=== PATIENT | male | born 1935 | race Caucasian/White ===

== ENCOUNTER → 2018-12-06 | Outpatient (CLI) | payer MEDICARE, BC ==
[~2018-12-06] MED LIST: ACYCLOVIR400 MG PO; ALDACTONE 25MG25 MG PO; ALLEGRA 180MG180 MG PO; ALLOPURINOL300 MG PO; ASPIRIN E.C. 8181 MG PO; CEPHALEXIN500 M1 PO; COREG12.5 MG PO; COREG25 MG PO; DECADRON4 MG PO; DIOVAN 80MG80 MG PO; FOLIC ACID0.8 MG PO; LOW DOSE ASPIRI81 MG PO; METFORMIN500 MG PO; NATURAL E400 IU PO; NIACOR500 MG PO; NITROSTAT0.4 MG/TAB SL; OMEGA-31000 MG PO; PROCHLORPERAZIN10 MG PO; RITUXAN 10100 MG/10 IV; SIMCOR 500 MG-21 TER PO; TREANDA25 MG IV; VITAMIN C500 MG PO; ZOCOR 40MG40 MG PO
== END ==
LOC: COL.VAS 12:30
DX: Z13.6 Encounter for screening for cardiovascular disorders (principal); M79.89 Other specified soft tissue disorders

== ENCOUNTER 2018-12-19 09:28 | Emergency (ER) | payer MEDICARE, BC ==
[~2018-12-19] VITALS: Ht 182.9 cm; Wt 90.0 kg
[2018-12-19 09:33] VITALS: TEMP 97.5
[2018-12-19 10:29] LABS: ALBUMIN 3.2 gm/dL (3.5-5.0); BILIRUBIN,TOTAL 1.1 mg/dL (0.0-1.0); C-REACTIVE PROTEIN 4.6 mg/dL (0.0-0.9); CALCIUM 8.3 mg/dL (8.4-10.2); CREATININE, serum 0.97 mg/dL (0.66-1.25); POTASSIUM 4.9 mmol/L (3.4-5.0); TOTAL PROTEIN 5.4 gm/dL (6.4-8.2)
[2018-12-19 10:37] LABS: BASO % 0.8 % (0.0-2.0); EOS % 0.8 % (0-4.0); GRAN % 75.1 % (42.2-75.2); HEMATOCRIT 38.1 % (42.0-52.0); HEMOGLOBIN 12.6 g/dl (13.5-18.0); LYMPH # 0.3 (1.2-3.4); LYMPH % 12.6 % (20.0-51.0); MEAN CELL VOLUME 97 fl (80.0-100.0); MEAN CORPUSCULAR HEMOGLOBIN 32 pg (27.0-31.0); MEAN CORPUSCULAR HGB CONC 33 g/dl (33.0-37.0); MEAN PLATELET VOLUME 11.3 fl (7.4-10.4); MONO # 0.3 (0.1-0.6); MONO % 10.3 % (1.7-9.3); PLATELET COUNT 68 K/mm3 (130-400); RED BLOOD COUNT 3.95 M/mm3 (4.20-5.60); REDCELL DISTRIBUTION WIDTH-CV 15.1 % (11.5-14.5)
[2018-12-19 11:11] LABS: COLLECTION METHOD CLEAN CATCH
[2018-12-19 11:28] LABS: MUCOUS Present /lpf; PH 5 (5-8); SQUAMOUS EPITHELIAL None Seen /hpf; URINE APPEARANCE Clear; URINE BACTERIA None Seen /hpf; URINE BILIRUBIN Negative (NEGATIVE); URINE BLOOD Negative (NEGATIVE); URINE COLOR Amber; URINE GLUCOSE Negative (NEGATIVE); URINE KETONE Negative (NEGATIVE); URINE LEUKOCYTE ESTERASE Negative (NEGATIVE); URINE NITRATE Negative (NEGATIVE); URINE PROTEIN(semi-quant) Negative (NEGATIVE); URINE RBC 0-2 /hpf
[2018-12-19 13:09] VITALS: BP 96/57; PULSE 90
[2018-12-22] MEDS ORDERED: ZOFRAN8 MG PO (12:02)
[2018-12-22] MEDS ORDERED: K-DUR20 MEQ PO (12:02)
[2018-12-22] MEDS ORDERED: COMPAZINE 110 MG/TAB PO (12:03)
[2018-12-22] MEDS ORDERED: ZOVIRAX400 MG PO (12:04)
[2018-12-22] MEDS ORDERED: ZYLOPRIM 300MG300 MG PO (12:05)
[2018-12-22] MEDS ORDERED: BACTRIM DS 8001 TAB PO (12:05)
== END 2018-12-19 13:09 | disposition home or self-care (01) ==
LOC: COL.ER 09:28
PROVIDERS: Family Medicine
DX: J90 Pleural effusion, not elsewhere classified (principal); R18.8 Other ascites; E11.9 Type 2 diabetes mellitus without complications; C95.90 Leukemia, unspecified not having achieved remission; Z79.84 Long term (current) use of oral hypoglycemic drugs
CPT/HCPCS: J2405; J7030; Q9967

== ENCOUNTER → 2018-12-22 | Outpatient (CLI) | payer MEDICARE, BC ==
[~2018-12-22] VITALS: Ht 182.9 cm; Wt 93.2 kg
[~2018-12-22] MED LIST changes: +BACTRIM DS 8001 TAB PO; +COMPAZINE 110 MG/TAB PO; +K-DUR20 MEQ PO; +ZOFRAN8 MG PO; +ZOVIRAX400 MG PO; +ZYLOPRIM 300MG300 MG PO
[2018-12-22 12:08] VITALS: BP 103/64; PULSE 92
[2018-12-22 13:22] VITALS: BP 109/67; PULSE 95
--- NOTE | 2018-12-22 13:45 | NUR ---
pt taken to pov in wheelchair
[2018-12-22 13:50] LABS: PERITONEAL -POLYMORPHONUCLEAR 36.3 % (0-25); PERITONEAL FLUID RBC 2000 /mm3 (0-0)
== END ==
LOC: COL.RAD 11:45
PROVIDERS: Internal Medicine
DX: C91.12 Chronic lymphocytic leukemia of B-cell type in relapse (principal); R18.8 Other ascites

== ENCOUNTER → 2019-01-06 | Outpatient (CLI) | payer MEDICARE, BC ==
[~2019-01-06] VITALS: Ht 182.9 cm; Wt 92.7 kg
[2019-01-06] VITALS (14 sets, daily range): BP systolic 93–121; BP diastolic 51–65; PULSE 77–88
[~2019-01-06] MED LIST changes: +ALDACTONE 25MG25 M1 PO; -ALDACTONE 25MG25 MG PO; +GLUCOPHAGE500 MG/TAB PO; -METFORMIN500 MG PO
[2019-01-06 14:01] LABS: ALBUMIN 2.8 gm/dL (3.5-5.0); CREATININE, serum 0.95 mg/dL (0.66-1.25); POTASSIUM 4.9 mmol/L (3.4-5.0); TOTAL PROTEIN 4.6 gm/dL (6.4-8.2)
--- NOTE | 2019-01-06 14:50 | NUR ---
pt to ct per wheelchair. Pt positioned on ct table in supine position. Monitors applied.
--- NOTE | 2019-01-06 15:00 | NUR ---
Dr Vyas into talk with pt.
--- NOTE | 2019-01-06 15:10 | NUR ---
Specimen obtained by Dr Vyas and placed in formalin. Specimen labeled.
--- NOTE | 2019-01-06 17:20 | NUR ---
pt out to car per wheelchair. Pt up with assistance and into car. Denies pain at this time.
== END ==
LOC: COL.RAD 11:24
PROVIDERS: Physician Assistant
DX: I51.9 Heart disease, unspecified (principal); R18.8 Other ascites; R53.83 Other fatigue

== ENCOUNTER → 2019-01-25 | Outpatient (CLI) | payer MEDICARE, BC ==
[~2019-01-25] VITALS: Ht 182.9 cm; Wt 90.4 kg
[2019-01-25 12:36] VITALS: BP 116/60; PULSE 82
[2019-01-25 13:30] VITALS: BP 105/58; PULSE 82
== END ==
LOC: COL.RAD 12:22
DX: C91.90 Lymphoid leukemia, unspecified not having achieved remission (principal); I50.9 Heart failure, unspecified; R18.8 Other ascites

== ENCOUNTER → 2019-02-08 | Outpatient (CLI) | payer MEDICARE, BC ==
[~2019-02-08] VITALS: Ht 182.9 cm; Wt 91.5 kg
[~2019-02-08] MED LIST changes: +OMEGA-3 FISH1000 MG PO; -OMEGA-31000 MG PO
[2019-02-08 12:03] VITALS: BP 105/64; PULSE 85
[2019-02-08 13:19] LABS: PERITONEAL -POLYMORPHONUCLEAR 5.9 % (0-25); PERITONEAL FLUID RBC 12000 /mm3 (0-0)
[2019-02-08 13:21] VITALS: BP 96/66; PULSE 80
--- NOTE | 2019-02-08 13:22 | NUR ---
PT TAKEN TO POV IN WHEELCHAIR. PT GAIT IS OCCASSIONALLY UNSTEADY. STAYED WITH PT FROM WHEELCHAIR TO POV.
[2019-02-08 17:47] LABS: TRIGLYCERIDE-BODY FLUID 37 mg/dL
== END ==
LOC: COL.RAD 11:45
PROVIDERS: Family Medicine
DX: C91.90 Lymphoid leukemia, unspecified not having achieved remission (principal); I50.9 Heart failure, unspecified; R18.8 Other ascites
CPT/HCPCS: 19804

== ENCOUNTER → 2019-02-22 | Outpatient (CLI) | payer MEDICARE, BC ==
[~2019-02-22] VITALS: Ht 182.9 cm; Wt 92.6 kg
[2019-02-22 09:17] VITALS: BP 111/72; PULSE 85
[2019-02-22 09:55] LABS: HEMATOCRIT 38.6 % (42.0-52.0); HEMOGLOBIN 12.7 g/dl (13.5-18.0); MEAN CELL VOLUME 95 fl (80.0-100.0); MEAN CORPUSCULAR HEMOGLOBIN 31 pg (27.0-31.0); MEAN CORPUSCULAR HGB CONC 33 g/dl (33.0-37.0); MEAN PLATELET VOLUME 10.7 fl (7.4-10.4); PLATELET COUNT 59 K/mm3 (130-400); RED BLOOD COUNT 4.07 M/mm3 (4.20-5.60); REDCELL DISTRIBUTION WIDTH-CV 15.2 % (11.5-14.5)
[2019-02-22 10:10] VITALS: BP 106/63; PULSE 90
[2019-02-22 10:14] LABS: ALBUMIN 2.9 gm/dL (3.5-5.0); BILIRUBIN,TOTAL 1.2 mg/dL (0.0-1.0); CALCIUM 7.9 mg/dL (8.4-10.2); CREATININE, serum 1.04 (0.66-1.25); POTASSIUM 4.9 mmol/L (3.4-5.0); TOTAL PROTEIN 4.8 gm/dL (6.4-8.2)
--- NOTE | 2019-02-22 10:25 | NUR ---
pt out to car per wheelchair with family. Pt denies pain at this time. Resp even and easy. Discharge instructions gone over with pt. Pt denies need for copy of instructions.
== END ==
LOC: COL.RAD 08:52
PROVIDERS: Family Medicine
DX: I50.9 Heart failure, unspecified (principal); R18.8 Other ascites

== ENCOUNTER → 2019-03-09 | Outpatient (CLI) | payer MEDICARE, BC ==
[~2019-03-09] VITALS: Ht 182.9 cm; Wt 97.6 kg
[2019-03-09 09:47] VITALS: BP 109/65; PULSE 77
[2019-03-09 10:30] VITALS: BP 119/55; PULSE 77
== END ==
LOC: COL.RAD 09:21
DX: R18.8 Other ascites (principal)

== ENCOUNTER 2019-03-16 09:15 | Outpatient (CLI) | payer MEDICARE, BC ==
[~2019-03-16] VITALS: Ht 182.9 cm; Wt 95.0 kg
[~2019-03-16 09:15] MED LIST changes: +COREG 6.256.25 MG/TA PO; -COREG12.5 MG PO
[2019-03-16 09:56] LABS: HEMOGLOBIN 13.2 g/dl (13.5-18.0); MEAN CELL VOLUME 95 fl (80.0-100.0); MEAN CORPUSCULAR HEMOGLOBIN 30 pg (27.0-31.0); MEAN CORPUSCULAR HGB CONC 32 g/dl (33.0-37.0); MEAN PLATELET VOLUME 10.1 fl (7.4-10.4); PLATELET COUNT 71 K/mm3 (130-400); RED BLOOD COUNT 4.34 M/mm3 (4.20-5.60); REDCELL DISTRIBUTION WIDTH-CV 14.7 % (11.5-14.5)
[2019-03-16 10:04] VITALS: BP 108/70; PULSE 85; TEMP 97.8
[2019-03-16 10:06] LABS: CALCIUM 8.1 mg/dL (8.4-10.2); CREATININE, serum 1.08 (0.66-1.25); POTASSIUM 4.9 mmol/L (3.4-5.0)
[2019-03-16 10:08] LABS: INR 1.1 (0.8-3.0); PROTHROMBIN TIME 12.1 SECONDS (9.7-12.8)
[2019-03-16 12:00] VITALS: BP 110/65; PULSE 78
--- NOTE | 2019-03-16 12:02 | NUR ---
Report received from [employer] [facility].
[2019-03-16 12:15] VITALS: BP 101/66; PULSE 77
[2019-03-16 12:30] VITALS: BP 107/66; PULSE 78
[2019-03-16 12:45] VITALS: BP 104/66; PULSE 78
--- NOTE | 2019-03-16 13:08 | NUR ---
Discharge instructions given to pt.Pt verbalizes understanding.INT removed,catheter tip intact.pt escorted out via wheelchair by this nurse.
== END 2019-03-16 13:09 | disposition home or self-care (01) ==
LOC: COL.RAD 09:15
PROVIDERS: Internal Medicine Cardiovascular Disease
DX: I34.0 Nonrheumatic mitral (valve) insufficiency (principal); Z95.1 Presence of aortocoronary bypass graft
CPT/HCPCS: J2704; J7030

== ENCOUNTER → 2019-03-24 | Outpatient (CLI) | payer MEDICARE, BC ==
[~2019-03-24] VITALS: Ht 182.9 cm; Wt 97.4 kg
[2019-03-24 12:00] VITALS: BP 109/73; PULSE 88
[2019-03-24 14:08] VITALS: BP 107/65; PULSE 88
--- NOTE | 2019-03-24 14:23 | NUR ---
PT TAKEN TO POV IN WHEELCHAIR, DRIVING HOME
== END ==
LOC: COL.RAD 11:39
DX: R18.8 Other ascites (principal)

== ENCOUNTER → 2019-04-08 | Outpatient (CLI) | payer MEDICARE, BC ==
[~2019-04-08] VITALS: Ht 182.9 cm; Wt 90.0 kg
[2019-04-08 09:58] VITALS: BP 99/42; PULSE 83
[2019-04-08 11:30] VITALS: BP 104/72; PULSE 87
== END ==
LOC: COL.RAD 09:42
DX: R18.8 Other ascites (principal)

== ENCOUNTER → 2019-04-20 | Outpatient (CLI) | payer MEDICARE, BC ==
[~2019-04-20] VITALS: Ht 182.9 cm; Wt 88.6 kg
[2019-04-20 08:59] VITALS: BP 103/65; PULSE 76
--- NOTE | 2019-04-20 09:03 | NUR ---
PT TAKEN TO ULTRASOUND ROOM
[2019-04-20 10:03] VITALS: BP 104/58; PULSE 75
--- NOTE | 2019-04-20 10:12 | NUR ---
PT LEAVES AMBULATORY TO POV WITH
== END ==
LOC: COL.RAD 08:48
DX: R18.8 Other ascites (principal)

== ENCOUNTER → 2019-05-04 | Outpatient (CLI) | payer MEDICARE, BC ==
[~2019-05-04] VITALS: Ht 182.9 cm; Wt 85.3 kg
[2019-05-04 09:35] VITALS: BP 101/60; PULSE 78
[2019-05-04 10:30] VITALS: BP 98/57; PULSE 80
--- NOTE | 2019-05-04 10:44 | NUR ---
PT LEAVES AMBULATORY WITH
== END ==
LOC: COL.RAD 08:57
DX: R18.8 Other ascites (principal); I50.42 Chronic combined systolic (congestive) and diastolic (congestive) heart failure; Z68.29 Body mass index [BMI] 29.0-29.9, adult

== ENCOUNTER 2019-05-16 09:48 | Day surgery (SDC) | payer MEDICARE, BC ==
[2019-05-16] VITALS (11 sets, daily range): BP systolic 82–108; BP diastolic 52–65; PULSE 72–86; TEMP 97.5
[~2019-05-16] VITALS: Ht 183 cm; Wt 87.5 kg
[2019-05-16 10:41] LABS: CALCIUM 8.1 mg/dL (8.4-10.2)
[2019-05-16 10:44] LABS: HEMATOCRIT 39.9 % (42.0-52.0); HEMOGLOBIN 12.7 g/dl (13.5-18.0); MEAN CELL VOLUME 90 fl (80.0-100.0); MEAN CORPUSCULAR HEMOGLOBIN 29 pg (27.0-31.0); MEAN CORPUSCULAR HGB CONC 32 g/dl (33.0-37.0); PLATELET COUNT 85 K/mm3 (130-400); RED BLOOD COUNT 4.42 M/mm3 (4.20-5.60); REDCELL DISTRIBUTION WIDTH-CV 15.3 % (11.5-14.5)
[2019-05-16 10:52] LABS: INR 1.1 (0.8-3.0); PROTHROMBIN TIME 12.5 SECONDS (9.7-12.8)
--- NOTE | 2019-05-16 12:19 | NUR ---
SEE MERGE DOCUMENTATION FOR MEDICATION ADMINISTRATION TIMES AND INTRA/POST PROCEDURE SEDATION ASSESSMENTS. MD NOTIFIED OF PLT COUNT PRIOR TO PROCEDURE.
--- NOTE | 2019-05-16 13:21 | NUR ---
Back from geotechnical laboratory technician by bed. Alert and oriented, spouse bedside. Right groin drsg CD&I, site soft to palpation and good pedal pulses noted. VSS
--- NOTE | 2019-05-16 17:18 | NUR ---
Discontinued IV intact. VSS. Right groin site CD&I and soft to palpation.
--- NOTE | 2019-05-16 17:19 | NUR ---
Ambulated to bathroom with steday gait. Discharge instructions given
--- NOTE | 2019-05-16 17:29 | NUR ---
Transferred to private car by greg
== END 2019-05-16 17:29 | disposition home or self-care (01) ==
LOC: COL.CAR 09:48
PROVIDERS: Internal Medicine Cardiovascular Disease
DX: I25.10 Atherosclerotic heart disease of native coronary artery without angina pectoris (principal); I42.9 Cardiomyopathy, unspecified; I34.9 Nonrheumatic mitral valve disorder, unspecified; Z95.1 Presence of aortocoronary bypass graft; R94.39 Abnormal result of other cardiovascular function study
CPT/HCPCS: J1644; J3010; Q9967

== ENCOUNTER → 2019-05-18 | Outpatient (CLI) | payer MEDICARE, BC ==
[~2019-05-18] VITALS: Ht 182.9 cm; Wt 86.5 kg
[2019-05-18 09:05] VITALS: BP 102/72; PULSE 93
[2019-05-18 10:40] VITALS: BP 104/70; PULSE 83
== END ==
LOC: COL.RAD 08:50
DX: R18.8 Other ascites (principal)

== ENCOUNTER → 2019-06-01 | Outpatient (CLI) | payer MEDICARE, BC ==
[~2019-06-01] VITALS: Ht 182.9 cm; Wt 86.4 kg
[~2019-06-01] MED LIST changes: +LASIX 20MG TABL20 MG PO
[2019-06-01 09:05] VITALS: BP 105/67; PULSE 78
[2019-06-01 10:06] VITALS: PULSE 78
== END ==
LOC: COL.RAD 08:49
DX: R18.8 Other ascites (principal)

== ENCOUNTER → 2019-06-17 | Outpatient (CLI) | payer MEDICARE, BC ==
[~2019-06-17] VITALS: Ht 182.9 cm; Wt 85.2 kg
[2019-06-17 09:18] VITALS: BP 101/56; PULSE 80
[2019-06-17 10:02] VITALS: BP 113/67; PULSE 76
--- NOTE | 2019-06-17 10:10 | NUR ---
LEAVES IN WHEELCHAIR WITH HIS
== END ==
LOC: COL.RAD 06-15 09:00
DX: R18.8 Other ascites (principal)

== ENCOUNTER → 2019-07-06 | Outpatient (CLI) | payer MEDICARE, BC ==
[~2019-07-06] VITALS: Ht 182.9 cm; Wt 83.5 kg
[2019-07-06 08:18] VITALS: BP 113/69; PULSE 81
[2019-07-06 09:20] VITALS: BP 101/69; PULSE 82
--- NOTE | 2019-07-06 09:35 | NUR ---
pt has small amount of bloody drainage on bandaid. Replaced bandaid with folded 2x2 and bandaid. Will monitor pt for an additional 15 minutes.
--- NOTE | 2019-07-06 09:45 | NUR ---
Dr Carmen looks at site. Informed of reinforced dressing. No clear drainage noted only slight bloody drainage.
--- NOTE | 2019-07-06 09:50 | NUR ---
No new drainage noted on outside of bandaid. Martir wrap applied around stomach for added pressure to site. Pt out to car per ambulation accompanied by .
== END ==
LOC: COL.RAD 08:08
DX: R18.8 Other ascites (principal)

== ENCOUNTER → 2019-09-09 | Outpatient (CLI) | payer MEDICARE, BC ==
[~2019-09-09] VITALS: Ht 182.9 cm; Wt 84.0 kg
[2019-09-09 12:36] VITALS: BP 116/67; PULSE 80
[2019-09-09 13:24] VITALS: BP 107/67; PULSE 92
--- NOTE | 2019-09-09 13:48 | NUR ---
PT LEAVES AMBULATORY WITH SPOUSE
== END ==
LOC: COL.RAD 12:00
DX: R18.8 Other ascites (principal)

== ENCOUNTER → 2019-09-20 | Outpatient (CLI) | payer MEDICARE, BC ==
[~2019-09-20] VITALS: Ht 182.9 cm; Wt 83.1 kg
[2019-09-20 13:30] VITALS: BP 95/65; PULSE 73
[2019-09-20 14:45] VITALS: BP 103/62; PULSE 83
== END ==
LOC: COL.RAD 13:13
DX: R18.8 Other ascites (principal)

== ENCOUNTER 2019-10-01 09:36 | Emergency (ER) | payer MEDICARE, BC ==
[~2019-10-01] VITALS: Ht 182.9 cm; Wt 84.1 kg
[2019-10-01 09:39] VITALS: TEMP 97.6
[2019-10-01] MEDS ORDERED: LIPITOR 40MG TA40 MG PO (09:57)
[2019-10-01] MEDS ORDERED: NIACIN 64 MG-501 TA1 PO (09:58)
[2019-10-01] MEDS ORDERED: CEPHALEXIN500 M1 PO (10:35)
[2019-10-01 10:43] VITALS: BP 117/73; PULSE 68
== END 2019-10-01 10:55 | disposition home or self-care (01) ==
LOC: COL.ER 09:36
DX: R04.0 Epistaxis (principal); I25.10 Atherosclerotic heart disease of native coronary artery without angina pectoris; Z79.82 Long term (current) use of aspirin

== ENCOUNTER 2019-10-05 09:57 | Day surgery (SDC) | payer MEDICARE, BC ==
[~2019-10-05] VITALS: Ht 182.9 cm; Wt 82.9 kg
[2019-10-05] VITALS (8 sets, daily range): BP systolic 100–110; BP diastolic 56–70; PULSE 72–81; TEMP 97.5–98.6
[~2019-10-05 09:57] MED LIST changes: +LIPITOR 40MG TA40 MG PO; +NIACIN 64 MG-501 TA1 PO
[2019-10-05] MEDS ORDERED: PLAVIX 75MG TAB75 MG PO (10:31)
--- NOTE | 2019-10-05 15:25 | NUR ---
Pt arrived from PACU via cart with ENGINE REPAIRER SERVICE. Received report from MCKENZIE Mayer. Pt was in OR longer than expected (2 hrs for 30 min procedure), and per report, had some difficulty with stopping bleeding. [place] [facility] [place] saturating through 4x4, and ENGINE REPAIRER SERVICE changed pt's dressing immediately upon arrival. Pt's VSS and WNL, and patient denies pain, nausea, or lightheadedness. Pt is sitting up in bed alert and oriented and appropriate. at bedside, and this RN reviewed some initial instructions with patient and . Call light within reach.
--- NOTE | 2019-10-05 15:41 | NUR ---
Brought pt apple juice per request. Pt already showing more drainage on dressing. Pt sitting comfortably in bed chatting with . VSS and WNL, call light within reach. Pt denies nausea or pain at this time.
--- NOTE | 2019-10-05 15:45 | NUR ---
Pt has sanguinous drainage on dressing through 4x4. Removed dressing and gave Afrin spray per orders and reapplied dressing (4x4 and paper tape). Pt successfully finished apple juice and requested applesauce and pudding.
--- NOTE | 2019-10-05 16:00 | NUR ---
Sanguinous drainage on dressing. Dressing changed with 4x4 and paper tape. VSS and WNL. Pt finished applesauce and pudding without c/o nausea. at bedside.
--- NOTE | 2019-10-05 16:15 | NUR ---
Pt sitting comfortably in bed. Dressing changed due to sanguinous exudate. Asked patient and if they feel comfortable going home with the frequency of dressing changes, and they both agree that they feel comfortable with that plan. Brought in 4x4s and paper tape to bring home. Pt denies pain or nausea.
--- NOTE | 2019-10-05 16:30 | NUR ---
Pt ambulated to bathroom with touch assist, however was unable to void at this time. Call light within reach, at bedside.
--- NOTE | 2019-10-05 17:00 | NUR ---
Pt successfully up to void. Reviewed discharge information including educational packet. Described to pt when/how to call the dr in case of concerns/questions. Also showed pt and how to administer Afrin spray and how to change dressing. They both expressed understanding and did not have further concerns or questions at this time. Dressing changed once more before pt discharge. Pt transferred via WC with RN to private car.
== END 2019-10-05 17:15 | disposition home or self-care (01) ==
LOC: SDCO 09:57
DX: R04.0 Epistaxis (principal); Z79.02 Long term (current) use of antithrombotics/antiplatelets; Z79.82 Long term (current) use of aspirin; I11.0 Hypertensive heart disease with heart failure; I50.9 Heart failure, unspecified; I34.1 Nonrheumatic mitral (valve) prolapse; I25.10 Atherosclerotic heart disease of native coronary artery without angina pectoris; E11.9 Type 2 diabetes mellitus without complications; Z85.6 Personal history of leukemia; I25.2 Old myocardial infarction; Z87.891 Personal history of nicotine dependence; C08.9 Malignant neoplasm of major salivary gland, unspecified; Z85.828 Personal history of other malignant neoplasm of skin; D48.5 Neoplasm of uncertain behavior of skin; L57.0 Actinic keratosis; Z82.49 Family history of ischemic heart disease and other diseases of the circulatory system; Z80.9 Family history of malignant neoplasm, unspecified; Z79.899 Other long term (current) drug therapy; Z95.0 Presence of cardiac pacemaker; Z98.62 Peripheral vascular angioplasty status; Z85.818 Personal history of malignant neoplasm of other sites of lip, oral cavity, and pharynx
CPT/HCPCS: J1100; J2405; J2704; J3010; J7120

== ENCOUNTER 2019-10-24 15:44 | Outpatient (RCR) | payer MEDICARE, BC ==
[~2019-10-24 15:44] MED LIST changes: +PLAVIX 75MG TAB75 MG PO
== END 2019-10-30 | disposition home or self-care (01) ==
LOC: COL.CR
DX: Z48.812 Encounter for surgical aftercare following surgery on the circulatory system (principal); I34.0 Nonrheumatic mitral (valve) insufficiency

== ENCOUNTER 2019-11-25 13:32 | Outpatient (RCR) | payer MEDICARE, BC ==
[2019-12-14] MEDS ORDERED: MUCINEX 60600 MG/TA1 (12:57)
== END 2019-12-26 06:57 | disposition home or self-care (01) ==
LOC: COL.CR 13:32
DX: Z48.812 Encounter for surgical aftercare following surgery on the circulatory system (principal); I34.0 Nonrheumatic mitral (valve) insufficiency

== ENCOUNTER 2019-11-30 20:47 | Emergency (ER) | payer MEDICARE, BC ==
[~2019-11-30] VITALS: Ht 182.9 cm; Wt 80.5 kg
[2019-11-30 21:16] LABS: ARTERIAL BLD GAS O2 SATURATION 93.2 % (92-100); ARTERIAL BLD GAS TCO2 CT 21.3; ARTERIAL BLOOD GAS BASE EXCESS -2.6 (-2-2); ARTERIAL BLOOD GAS HCO3 20.4 meq/L (22-26); ARTERIAL BLOOD GAS PCO2 29.6 mmHg (35-45); ARTERIAL BLOOD GAS pH 7.46 (7.35-7.45)
[2019-11-30 21:48] LABS: BASO % 0.4 % (0.0-2.0); GRAN # 1.8 (1.4-6.5); GRAN % 65.2 % (42.2-75.2); HEMOGLOBIN 10.7 g/dl (13.5-18.0); LYMPH # 0.7 (1.2-3.4); MEAN CELL VOLUME 87 fl (80.0-100.0); MEAN CORPUSCULAR HEMOGLOBIN 27 pg (27.0-31.0); MEAN CORPUSCULAR HGB CONC 32 g/dl (33.0-37.0); MEAN PLATELET VOLUME 11.7 fl (7.4-10.4); MONO # 0.2 (0.1-0.6); MONO % 8.3 % (1.7-9.3); PLATELET COUNT 78 K/mm3 (130-400); RED BLOOD COUNT 3.92 M/mm3 (4.20-5.60); REDCELL DISTRIBUTION WIDTH-CV 15.6 % (11.5-14.5)
[2019-11-30 21:49] LABS: HEMATOCRIT 33.9 % (42.0-52.0)
[2019-11-30 22:03] LABS: ALBUMIN 3.4 gm/dL (3.5-5.0); CALCIUM 8.1 mg/dL (8.4-10.2); CREATININE, serum 0.99 (0.66-1.25); POTASSIUM 4.2 mmol/L (3.4-5.0); TOTAL PROTEIN 5.4 gm/dL (6.4-8.2)
[2019-11-30 22:44] LABS: COLLECTION METHOD CLEAN CATCH
[2019-11-30 22:53] LABS: MUCOUS Present /lpf; PH 5 (5-8); SQUAMOUS EPITHELIAL None Seen /hpf; URINE APPEARANCE Clear; URINE BACTERIA None Seen /hpf; URINE BILIRUBIN Negative (NEGATIVE); URINE BLOOD Negative (NEGATIVE); URINE COLOR Yellow; URINE GLUCOSE Negative (NEGATIVE); URINE KETONE 1+ (NEGATIVE); URINE LEUKOCYTE ESTERASE Negative (NEGATIVE); URINE NITRATE Negative (NEGATIVE); URINE PROTEIN(semi-quant) Negative (NEGATIVE); URINE RBC 0-2 /hpf; URINE UROBILINOGEN Negative (NEGATIVE)
[2019-12-01 07:30] VITALS: BP 93/62; PULSE 91; TEMP 98.9
== END 2019-12-01 07:33 | disposition short-term general hospital (02) ==
LOC: COL.ER 20:47
PROVIDERS: Family Medicine
DX: J18.1 Lobar pneumonia, unspecified organism (principal); I25.10 Atherosclerotic heart disease of native coronary artery without angina pectoris; Z95.1 Presence of aortocoronary bypass graft; Z95.0 Presence of cardiac pacemaker; Z95.5 Presence of coronary angioplasty implant and graft; Z79.02 Long term (current) use of antithrombotics/antiplatelets; Z79.82 Long term (current) use of aspirin
CPT/HCPCS: J0456; J0696; J7030; J7050

== ENCOUNTER → 2019-12-14 | Outpatient (CLI) | payer MEDICARE, BC ==
[~2019-12-14] VITALS: Ht 182.9 cm; Wt 83.9 kg
[~2019-12-14] MED LIST changes: +MUCINEX 60600 MG/TA1
[2019-12-14 12:58] VITALS: BP 110/69; PULSE 76
[2019-12-14 13:49] VITALS: BP 110/70; PULSE 80
--- NOTE | 2019-12-14 14:05 | NUR ---
PT TAKEN DOWN TO LOBBY IN WHEELCHAIR. PRESENT
== END ==
LOC: COL.RAD 12-13 11:45
DX: R18.8 Other ascites (principal)

== ENCOUNTER 2020-01-18 11:03 | Outpatient (RCR) | payer SELFPAY | END 2020-03-27 | disposition still patient (30) | LOC: COL.CR | DX: Z02.89 Encounter for other administrative examinations (principal) ==

== ENCOUNTER 2020-11-16 20:06 | Inpatient (IN) | payer MEDICARE, BC ==
[~2020-11-16] VITALS: Ht 203.2 cm; Wt 80.0 kg
[2020-11-16 21:48] LABS: HEMOGLOBIN 13.4 g/dl (13.5-18.0); MEAN CELL VOLUME 86 fl (80.0-100.0); MEAN CORPUSCULAR HEMOGLOBIN 26 pg (27.0-31.0); MEAN CORPUSCULAR HGB CONC 31 g/dl (33.0-37.0); MEAN PLATELET VOLUME 10.1 fl (7.4-10.4); PLATELET COUNT 156 K/mm3 (130-400); RED BLOOD COUNT 5.11 M/mm3 (4.20-5.60); REDCELL DISTRIBUTION WIDTH-CV 20.4 % (11.5-14.5)
[2020-11-16 21:54] LABS: ALANINE AMINOTRANSFERASE 18 U/L (4-49); ALBUMIN 3.7 gm/dL (3.5-5.0); ALKALINE PHOSPHATASE 101 U/L (50-136); ANION GAP 8 mmol/L (7-16); AST,SGOT 41 U/L (15-37); BILIRUBIN,TOTAL 1.1 mg/dL (0.0-1.0); BLOOD UREA NITROGEN 13 mg/dL (9-20); CALCIUM 8.4 mg/dL (8.4-10.2); CARBON DIOXIDE 25 mmol/L (22-30); CHLORIDE 99 mmol/L (98-107); CREATININE, serum 0.97 (0.66-1.25); GLUCOSE 114 mg/dL (74-106); POTASSIUM 4.9 mmol/L (3.4-5.0); SODIUM 132 mmol/L (137-145); TOTAL PROTEIN 5.8 gm/dL (6.4-8.2)
[2020-11-16 22:06] LABS: TROPONIN-I < 0.012 ng/mL (0.000-0.035)
[2020-11-16 22:17] LABS: COLLECTION METHOD CLEAN CATCH
[2020-11-16 22:17] LABS: LYMPHOCYTE 64 % (20.0-51.0); NEUTROPHILS 29 % (42.0-75.2)
[2020-11-16 22:18] LABS: HYPOCHROMIA 3+; PLATELET ESTIMATE NORMAL (NORMAL)
[2020-11-16 22:19] LABS: ANISOCYTOSIS 2+; OVALOCYTES 1+
[2020-11-16 22:23] LABS: MUCOUS Present /lpf; PH 5 (5-8); SQUAMOUS EPITHELIAL 0-2 /hpf; URINE APPEARANCE Clear; URINE BACTERIA None Seen /hpf; URINE BILIRUBIN Negative (NEGATIVE); URINE BLOOD Negative (NEGATIVE); URINE COLOR Yellow; URINE GLUCOSE Negative (NEGATIVE); URINE KETONE Negative (NEGATIVE); URINE LEUKOCYTE ESTERASE Negative (NEGATIVE); URINE NITRATE Negative (NEGATIVE); URINE PROTEIN(semi-quant) Negative (NEGATIVE)
[2020-11-17] MEDS ORDERED: PLAVIX 75MG TAB75 MG PO (02:38)
[2020-11-17] MEDS ORDERED: COREG 3.123.125 MG/T PO (02:40)
--- NOTE | 2020-11-17 04:46 | NUR ---
Vancomycin Initial Dosing Pharmacy Note 85 yo M Indication: Empiric Goal: 15-20 Hx: None identified BMI: 23.8 Wt: 79.5 SCr: 0.97 estCrCl ~ 65 ml/min t 1/2 ~ 12h Tmax: 96.8 WBC: 17.9 LA 1.5 CRP pending Micro pending Pt loaded with 1.5 gm x1( ~19mg/kg). Will start a maintenance regimen of 1 gm q12h. Will follow renal function and micro for need to adjust therapy. Thank you for this dosing consult!
[2020-11-17 05:31] VITALS: BP 108/61; PULSE 103; TEMP 98
--- NOTE | 2020-11-17 05:57 | NUR ---
Pt was transferred to the unit via stretcher. Pt has no complaints at this time. Pt has call light within reach and his bed is in lowest position.
[2020-11-17 06:38] LABS: INR 1.3 (0.8-3.0); PROTHROMBIN TIME 14.2 SECONDS (9.7-12.8)
[2020-11-17 06:45] LABS: MAGNESIUM 2.2 mg/dL (1.6-2.3); PHOSPHOROUS 3.5 mg/dL (2.5-4.5)
[2020-11-17 06:52] LABS: C-REACTIVE PROTEIN < 0.5 mg/dL (0.0-0.9)
[2020-11-17 06:58] LABS: TROPONIN-I < 0.012 ng/mL (0.000-0.035)
--- NOTE | 2020-11-17 07:30 | NUR ---
Reported off to MCKENZIE Lema. Pt still has Vanco infusing at this time. Pt has ambulated to the restroom this morning with the aide as a standby assist. Pt is back in bed and has his call light within reach and his bed is in lowest position.
[2020-11-17 08:34] VITALS: BP 94/50; PULSE 79; TEMP 97.7
--- NOTE | 2020-11-17 09:04 | NUR ---
Left VM for Dr. Gillespie, oncology consult
[2020-11-17 09:10] LABS: PATHOLOGY DIFF REVIEW OK
--- NOTE | 2020-11-17 11:17 | NUR ---
Patient in bed resting. Alert and oriented x 3. Assessment complete. Denies pain at this time. BLE edema noted. Denies further needs at this time.
[2020-11-17 11:57] LABS: HEMATOCRIT 38.3 % (42.0-52.0); HEMOGLOBIN 11.8 g/dl (13.5-18.0); MEAN CELL VOLUME 88 fl (80.0-100.0); MEAN CORPUSCULAR HEMOGLOBIN 27 pg (27.0-31.0); MEAN CORPUSCULAR HGB CONC 31 g/dl (33.0-37.0); MEAN PLATELET VOLUME 10.8 fl (7.4-10.4); PLATELET COUNT 96 K/mm3 (130-400); RED BLOOD COUNT 4.37 M/mm3 (4.20-5.60); REDCELL DISTRIBUTION WIDTH-CV 19.9 % (11.5-14.5)
[2020-11-17 12:04] LABS: ALBUMIN 3.2 gm/dL (3.5-5.0); BILIRUBIN,TOTAL 1.1 mg/dL (0.0-1.0); CALCIUM 8.2 mg/dL (8.4-10.2); CREATININE, serum 0.85 (0.66-1.25); POTASSIUM 4.2 mmol/L (3.4-5.0); TOTAL PROTEIN 5.1 gm/dL (6.4-8.2)
[2020-11-17 12:31] VITALS: BP 108/70; PULSE 87; TEMP 97.9
[2020-11-17 12:31] LABS: BAND 6 % (0-10); EOSINOPHIL 2 % (0-4); LYMPHOCYTE 60 % (20.0-51.0); NEUTROPHILS 29 % (42.0-75.2)
[2020-11-17 12:32] LABS: HYPOCHROMIA 2+; PLATELET ESTIMATE DECREASED (NORMAL)
[2020-11-17 12:33] LABS: ANISOCYTOSIS 2+
--- NOTE | 2020-11-17 12:34 | NUR ---
First visit from the cryptologic supervisor. No needs right now.
--- NOTE | 2020-11-17 15:38 | NUR ---
Plan to return home with Dianna San at [phone]. Patient reports that he resides locally andhis Son Moustapha San at . Patient reports the use of [facility] for medications, PCPDr. Cortés, and the use of a Pacemaker and walker for mobility. Patient reports that he sees Dr. Adams for his heart. Patient reports that he does not want home health and does not believe that he needs it. Reports as care support and decision makes. Will continue to follow.
[2020-11-17 17:00] VITALS: BP 112/65; PULSE 89; TEMP 97.5
--- NOTE | 2020-11-17 18:04 | NUR ---
Patient has done well throughout the day, has been up to recliner throughout the day. Denies pain. Denies further needs at this time. Will report off to machinist 2nd shift.
[2020-11-17 19:38] VITALS: BP 103/56; PULSE 76; TEMP 97.5
--- NOTE | 2020-11-17 22:00 | NUR ---
Pt is currently back in bed. Pt IV has been beeping because of place that his IV is in. Pt veins were not easy to access. Pt arm was wrapped at this time and IV is infusing at this time. Pt has his call light within reach and his bed is in lowest position.
[2020-11-18] VITALS (8 sets, daily range): BP systolic 90–110; BP diastolic 45–61; PULSE 75–87; TEMP 97–98.3
--- NOTE | 2020-11-18 03:00 | NUR ---
Pt ambulated to the restroom. Pt is currently back in bed. Pt IV has been beeping and I've tried to apply new tegederm dressing to IV and repositioned pt arm to try to help with the IV. Pt stated that his IV has been beeping throughout the day. I attempted twice to get a new IV. I was not sucessful at all.
--- NOTE | 2020-11-18 03:38 | NUR ---
IV attempt made x1 by this nurse to left forearm-unsuccessful.
--- NOTE | 2020-11-18 06:20 | NUR ---
Pt is currently resting in bed. Pharmacy was contacted this morning due to pt having problems with his IV. His Zosyn was redosed for 0900 this morning. surgical supervisor was able to get a new IV in pt upper right arm. Pt tolerated well. Pt has since ambulated to the restroom.
[2020-11-18 06:50] LABS: BASO % 0.7 % (0.0-2.0); EOS # 0.1 (0.0-0.7); EOS % 1.5 % (0-4.0); GRAN # 1.5 (1.4-6.5); GRAN % 24.8 % (42.2-75.2); HEMATOCRIT 38.2 % (42.0-52.0); HEMOGLOBIN 11.9 g/dl (13.5-18.0); LYMPH % 65.5 % (20.0-51.0); MEAN CELL VOLUME 86 fl (80.0-100.0); MEAN CORPUSCULAR HEMOGLOBIN 27 pg (27.0-31.0); MEAN CORPUSCULAR HGB CONC 31 g/dl (33.0-37.0); MEAN PLATELET VOLUME 10.9 fl (7.4-10.4); MONO # 0.4 (0.1-0.6); PLATELET COUNT 90 K/mm3 (130-400); RED BLOOD COUNT 4.47 M/mm3 (4.20-5.60); REDCELL DISTRIBUTION WIDTH-CV 19.9 % (11.5-14.5)
[2020-11-18 07:51] LABS: CALCIUM 7.8 mg/dL (8.4-10.2); CREATININE, serum 0.9 (0.66-1.25); POTASSIUM 3.6 mmol/L (3.4-5.0)
--- NOTE | 2020-11-18 08:30 | NUR ---
Patient laying in bed resting, easily awakened with verbal command. A&Ox4. VSS IV CDI. Denies pain and discomfort. Patient standby assist to the bathroom. Nurse assisted with getting patient ready to eat breakfast. No further needs expressed from the patient. Call light within reach. Bed alarm on
--- NOTE | 2020-11-18 11:22 | NUR ---
No new needs at this time. Social work will continue to follow.
--- NOTE | 2020-11-18 17:27 | NUR ---
Patient resting in bed sitting up. Intermittently up and awake watching the [employer] game. A&Ox4. VSS. IV CDI. Denies pain and discomfort. No further needs expressed from the patient. Call light within reach
--- NOTE | 2020-11-18 20:00 | NUR ---
Report received, assumed care for senior major gifts officer. Assessment complete. VS stable. A&Ox3-drowsy. Denies pain/nausea/shortness of breath. INT to right AC flushes without difficulty. INT to left upper arm flushes without difficulty. Plan of care discussed for this shift to include HS meds/lasix/calling for questions/concerns. Verbalizes understanding/denies questions/concerns. Call light in reach/bed alarm on. Will monitor.
[2020-11-19] VITALS (7 sets, daily range): BP systolic 91–104; BP diastolic 49–59; PULSE 78–96; TEMP 97.2–98.1
--- NOTE | 2020-11-19 00:10 | NUR ---
Resting in bed eyes closed. Lasix given IV per dr order. Heparin given SQ in abdomen. Instructed to call when needing to use the bathroom due to high fall risk. Verbalizes understanding. Call light in reach/bed alarm on. Will monitor.
--- NOTE | 2020-11-19 06:10 | NUR ---
Rested well this shift. Denied pain/nausea/shortness of breath. VS remained stable-hypotensive. Good output post lasix. Denies current needs. Call light in reach. Will monitor.
[2020-11-19 07:33] LABS: BASO % 0.4 % (0.0-2.0); EOS # 0.1 (0.0-0.7); EOS % 1.8 % (0-4.0); GRAN # 1.2 (1.4-6.5); GRAN % 23.7 % (42.2-75.2); HEMATOCRIT 37.8 % (42.0-52.0); HEMOGLOBIN 11.6 g/dl (13.5-18.0); LYMPH # 3.5 (1.2-3.4); MEAN CELL VOLUME 85 fl (80.0-100.0); MEAN CORPUSCULAR HEMOGLOBIN 26 pg (27.0-31.0); MEAN CORPUSCULAR HGB CONC 31 g/dl (33.0-37.0); MEAN PLATELET VOLUME 11.2 fl (7.4-10.4); MONO # 0.3 (0.1-0.6); MONO % 5.9 % (1.7-9.3); PLATELET COUNT 77 K/mm3 (130-400); RED BLOOD COUNT 4.47 M/mm3 (4.20-5.60); REDCELL DISTRIBUTION WIDTH-CV 19.8 % (11.5-14.5)
[2020-11-19 07:55] LABS: CALCIUM 7.9 mg/dL (8.4-10.2); CREATININE, serum 0.93 (0.66-1.25); MAGNESIUM 2.2 mg/dL (1.6-2.3); POTASSIUM 3.4 mmol/L (3.4-5.0)
--- NOTE | 2020-11-19 09:01 | NUR ---
Spoke with shipping technician Ariel. She spoke to Radiologist & orders to hold Heparin & plavix for today for procedure. Patient sitting at edge of bed working on his breakfast tray. K+ per protocol, mixed with his orange juice. Strict I&O today. High fall risk per protcol.
--- NOTE | 2020-11-19 09:50 | NUR ---
Initial visit; Patient thanked Remote Sensing Specialist for offering God's blessings and prayer. Remote Sensing Specialist will follow up.
--- NOTE | 2020-11-19 10:11 | NUR ---
Patient up to the bathroom, voided. Tolerated breafkast. rounded. PLan of care reviewed
--- NOTE | 2020-11-19 18:02 | NUR ---
Patient sitting up in chair. He is doing well post thoracentesis. Patient Blood pressures remain soft, I did speak to Dr. Corbett who wanted this evening dose of coreg & lasix held. He did get another 1.5 liters off with thoracentesis. He denies pain. Int in Ac dc. Int to right upper arm
--- NOTE | 2020-11-19 20:00 | NUR ---
Report received, assumed care for fabrication supervisor. Assessment complete. VS stable. A&Ox3. Denies pain/nausea/shortness of breath at rest. States does get a little short of air with activity. All lung brower with fine crackles. INT to right upper arm flushes without difficulty. Plan of care discussed for this shift to include HS meds/calling for questions/concerns. Verbalizes understanding/denies needs. Call light in reach. Will monitor.
[2020-11-20] VITALS (7 sets, daily range): BP systolic 89–105; BP diastolic 53–65; PULSE 75–82; TEMP 97.4–97.9
--- NOTE | 2020-11-20 01:00 | NUR ---
Resting eyes closed. No s/s of distress noted.
--- NOTE | 2020-11-20 06:40 | NUR ---
Rested well this shift. Denies pain/nausea. Short of breath with activity only but states much better. VS remained stable-hypotensive x1. Denies current needs. Call light in reach. Will monitor.
--- NOTE | 2020-11-20 07:10 | NUR ---
REPORT RECIEVED PT RESTING.
[2020-11-20 07:47] LABS: BASO % 0.6 % (0.0-2.0); EOS # 0.1 (0.0-0.7); EOS % 1.2 % (0-4.0); GRAN # 1.2 (1.4-6.5); GRAN % 25.6 % (42.2-75.2); HEMOGLOBIN 11.4 g/dl (13.5-18.0); LYMPH # 3.2 (1.2-3.4); LYMPH % 65.8 % (20.0-51.0); MEAN CELL VOLUME 86 fl (80.0-100.0); MEAN CORPUSCULAR HEMOGLOBIN 27 pg (27.0-31.0); MEAN CORPUSCULAR HGB CONC 31 g/dl (33.0-37.0); MEAN PLATELET VOLUME 10.9 fl (7.4-10.4); MONO # 0.3 (0.1-0.6); MONO % 6.6 % (1.7-9.3); PLATELET COUNT 71 K/mm3 (130-400); RED BLOOD COUNT 4.28 M/mm3 (4.20-5.60); REDCELL DISTRIBUTION WIDTH-CV 19.9 % (11.5-14.5)
[2020-11-20 07:48] LABS: HEMATOCRIT 36.8 % (42.0-52.0)
[2020-11-20 08:04] LABS: CREATININE, serum 0.96 (0.66-1.25); POTASSIUM 3.9 mmol/L (3.4-5.0)
--- NOTE | 2020-11-20 10:05 | NUR ---
PT RESTING IN BED, ASSESSMENTS COMPLETE, VSS, AM MEDS GIVEN ORDERED. PT DENIES NEEDS OR PAIN AT THIS TIME. PO POTASSIUM GIVEN PER PROTOCOLS.
[2020-11-20 14:34] LABS: GLUCOSE,PLEURAL FLUID 112 mg/dL; TOTAL PROTEIN,PLEURAL FLUID 2.4 gm/dL
[2020-11-20 14:53] LABS: PLEURAL FLUID RBC 6000 /mm3 (0-0); PLEURAL FLUID WBC 1204 /mm3
[2020-11-20 14:56] LABS: PLEURAL FLUID APPEARANCE CLOUDY; PLEURAL FLUID COLOR YELLOW
--- NOTE | 2020-11-20 19:32 | NUR ---
Pt assessment complete. Pt is sitting on the side of the bed upon entry, he is A/O x4. His breathing is even and unlabored on RA. Pt denies any SOB. No pain at this time. Ambulated to the restroom well with SBA and walker. Assisted into bed, call light within reach.
[2020-11-21 00:49] VITALS: BP 110/62; PULSE 59; TEMP 97.3
[2020-11-21 04:00] VITALS: BP 91/54; PULSE 78; TEMP 97.6
--- NOTE | 2020-11-21 06:34 | NUR ---
Pt slept through the night. No SOB or pain. Did have one episode of low BP, denied any dizziness or symptoms at that time. No needs at this time. Bed alarm in place.
[2020-11-21 07:20] VITALS: BP 88/52; PULSE 74; TEMP 98
[2020-11-21 07:44] LABS: MEAN CELL VOLUME 87 fl (80.0-100.0); MEAN CORPUSCULAR HEMOGLOBIN 27 pg (27.0-31.0); MEAN CORPUSCULAR HGB CONC 31 g/dl (33.0-37.0); PLATELET COUNT 63 K/mm3 (130-400); RED BLOOD COUNT 4.13 M/mm3 (4.20-5.60); REDCELL DISTRIBUTION WIDTH-CV 19.9 % (11.5-14.5)
[2020-11-21 07:52] LABS: HEMATOCRIT 35.9 % (42.0-52.0)
[2020-11-21 07:56] LABS: CALCIUM 8.1 mg/dL (8.4-10.2); CREATININE, serum 0.94 (0.66-1.25)
--- NOTE | 2020-11-21 08:42 | NUR ---
PT RESTING IN BED THERAPY SAID OK TO BE INDEPEDT IN ROOM.LAB WORK BETTER TODAY.
--- NOTE | 2020-11-21 09:21 | NUR ---
Initial visit; Patient thanked Legislative Correspondent for looking in on him. While visiting patient mentioned that his has Huntingtons Disease and this week they had planned to move her to a Care Facility. Emotionally and physically patient is having a difficult time. Patient asked if Legislative Correspondent would keep both his and him in her prayers. Legislative Correspondent offered prayer for them following their visit and will continue to keep them in her prayers. Legislative Correspondent will follow up while patient is hospitalized here.
--- NOTE | 2020-11-21 09:27 | NUR ---
Follow-up visit; Patient remembers Hearings Reporter from prior visits. Hearings Reporter offered prayer and is keeping him in her prayers.
[2020-11-21 11:24] VITALS: BP 95/60; PULSE 76; TEMP 97.3
--- NOTE | 2020-11-21 11:31 | NUR ---
PLAN FOR THORACENTISIS @1500 TODAY. INFORMED PT AND VERBALIZED UNDERSTANDING.
--- NOTE | 2020-11-21 15:16 | NUR ---
TECH REPORTED THAT PT DID NOT HAVE FLUID AROUND LUNG AND PROCEEDURE WAS CANCELLED.
[2020-11-21] MEDS ORDERED: LASIX 40MG TABL40 MG PO (15:29)
[2020-11-21 15:54] VITALS: BP 96/57; PULSE 70; TEMP 97.7
--- NOTE | 2020-11-21 16:43 | NUR ---
DISCHARGE INSTRUCTIONS REVIEWED WITH PATIENT. QUESTIONS ANSWERED.
--- NOTE | 2020-11-21 17:02 | NUR ---
PT TAKEN OUT AT THIS TIME.
== END 2020-11-21 17:03 | disposition home or self-care (01) | DRG 292 ==
LOC: COL.ER 20:06 → SURG 11-17 01:50 → MEDICAL 11-17 01:50 → COL.ER 11-17 01:50 → EDBEDREQ 11-17 05:05 → SURG 11-20 12:30
PROVIDERS: Emergency Medicine; Family Medicine; Nurse Practitioner Family; Physician Assistant
PROC: 0W993ZZ Drainage of Right Pleural Cavity, Percutaneous Approach (ICD-10-PCS; principal; 2020-11-17)
DX: I50.43 Acute on chronic combined systolic (congestive) and diastolic (congestive) heart failure (principal); C91.10 Chronic lymphocytic leukemia of B-cell type not having achieved remission; E87.1 Hypo-osmolality and hyponatremia; J90 Pleural effusion, not elsewhere classified; I42.9 Cardiomyopathy, unspecified; I25.10 Atherosclerotic heart disease of native coronary artery without angina pectoris; E11.9 Type 2 diabetes mellitus without complications; Z95.5 Presence of coronary angioplasty implant and graft; I25.2 Old myocardial infarction; I34.0 Nonrheumatic mitral (valve) insufficiency; Z20.822 Contact with and (suspected) exposure to COVID-19; R59.0 Localized enlarged lymph nodes; D69.6 Thrombocytopenia, unspecified; Z85.828 Personal history of other malignant neoplasm of skin; Z95.0 Presence of cardiac pacemaker; Z79.82 Long term (current) use of aspirin; Z87.891 Personal history of nicotine dependence
CPT/HCPCS: 99222-AI; 99233-AI; 99239; G0378; J1644; J1940; J2543; J3370; J7050; Q9967

== ENCOUNTER 2021-05-28 11:16 | Emergency (ER) | payer MEDICARE, BC ==
[~2021-05-28] VITALS: Ht 182.9 cm; Wt 74.1 kg
[~2021-05-28 11:16] MED LIST changes: +COREG 3.123.125 MG/T PO; +LASIX 40MG TABL40 MG PO
[2021-05-28 11:17] VITALS: TEMP 97.5
[2021-05-28] MEDS ORDERED: LASIX 20MG TABL20 MG PO (11:38)
[2021-05-28 12:09] LABS: ALANINE AMINOTRANSFERASE 12 U/L (4-49); ALBUMIN 3.2 gm/dL (3.5-5.0); ALKALINE PHOSPHATASE 91 U/L (50-136); ANION GAP 4 mmol/L (7-16); AST,SGOT 21 U/L (15-37); BILIRUBIN,TOTAL 0.6 mg/dL (0.0-1.0); BLOOD UREA NITROGEN 26 mg/dL (9-20); CALCIUM 7.7 mg/dL (8.4-10.2); CARBON DIOXIDE 26 mmol/L (22-30); CHLORIDE 107 mmol/L (98-107); CREATININE, serum 1.11 (0.66-1.25); GLUCOSE 109 mg/dL (74-106); POTASSIUM 4.3 mmol/L (3.4-5.0); SODIUM 136 mmol/L (137-145); TOTAL PROTEIN 5.2 gm/dL (6.4-8.2)
[2021-05-28 12:21] LABS: TROPONIN-I < 0.012 ng/mL (0.000-0.035)
[2021-05-28 12:26] LABS: MEAN CELL VOLUME 92 fl (80.0-100.0); MEAN CORPUSCULAR HGB CONC 29 g/dl (33.0-37.0); MEAN PLATELET VOLUME 10.1 fl (7.4-10.4); PLATELET COUNT 79 K/mm3 (130-400); RED BLOOD COUNT 3.53 M/mm3 (4.20-5.60); REDCELL DISTRIBUTION WIDTH-CV 17.3 % (11.5-14.5)
[2021-05-28 12:31] LABS: HEMATOCRIT 32.6 % (42.0-52.0); HEMOGLOBIN 9.4 g/dl (13.5-18.0); MEAN CORPUSCULAR HEMOGLOBIN 27 pg (27.0-31.0)
[2021-05-28 12:58] LABS: BAND 3 % (0-10); EOSINOPHIL 1 % (0-4); LYMPHOCYTE 70 % (20.0-51.0); NEUTROPHILS 25 % (42.0-75.2); OVALOCYTES 1+; PLATELET ESTIMATE DECREASED (NORMAL); TEAR DROP CELLS 1+
[2021-05-28 17:30] VITALS: BP 83/58; PULSE 92
[2021-06-11] MEDS ORDERED: DEMADEX 20MG20 M1 (08:31)
== END 2021-05-28 17:42 | disposition short-term general hospital (02) ==
LOC: COL.ER 11:16
PROVIDERS: Personal Emergency Response Attendant
DX: D64.9 Anemia, unspecified (principal); I95.9 Hypotension, unspecified; E11.9 Type 2 diabetes mellitus without complications; I25.10 Atherosclerotic heart disease of native coronary artery without angina pectoris; Z95.0 Presence of cardiac pacemaker; Z95.9 Presence of cardiac and vascular implant and graft, unspecified; Z79.82 Long term (current) use of aspirin; Z85.6 Personal history of leukemia; Z79.02 Long term (current) use of antithrombotics/antiplatelets; W19.XXXA Unspecified fall, initial encounter
CPT/HCPCS: J0456; J0696; J7050

== ENCOUNTER → 2021-06-13 | Outpatient (CLI) | payer MEDICARE, BC ==
--- NOTE | 2021-06-11 10:01 | NUR ---
verified with dr govea that pt did not have to stop plavix.
[~2021-06-13] VITALS: Ht 182.9 cm; Wt 75.0 kg
[~2021-06-13] MED LIST changes: +DEMADEX 20MG20 M1
[2021-06-13 10:57] VITALS: BP 89/55; PULSE 82
[2021-06-13 12:25] VITALS: BP 84/58; PULSE 82
== END ==
LOC: COL.RAD 10:32
DX: J90 Pleural effusion, not elsewhere classified (principal)
CPT/HCPCS: 19804

== ENCOUNTER 2021-06-25 19:27 | Emergency (ER) | payer MEDICARE, BC ==
[~2021-06-25] VITALS: Ht 182.9 cm; Wt 75.5 kg
[2021-06-25 19:35] VITALS: TEMP 97.3
[2021-06-25 20:22] LABS: COLLECTION METHOD IN
[2021-06-25 20:33] LABS: MEAN CELL VOLUME 89 fl (80.0-100.0); MEAN CORPUSCULAR HGB CONC 30 g/dl (33.0-37.0); MEAN PLATELET VOLUME 11.8 fl (7.4-10.4); PLATELET COUNT 77 K/mm3 (130-400); RED BLOOD COUNT 3.59 M/mm3 (4.20-5.60); REDCELL DISTRIBUTION WIDTH-CV 16.6 % (11.5-14.5)
[2021-06-25 20:37] LABS: MUCOUS Present /lpf; PH 5 (5-8); SQUAMOUS EPITHELIAL None Seen /hpf; URINE APPEARANCE Clear; URINE BACTERIA None Seen /hpf; URINE BILIRUBIN Negative (NEGATIVE); URINE BLOOD Negative (NEGATIVE); URINE COLOR Yellow; URINE GLUCOSE Negative (NEGATIVE); URINE KETONE Negative (NEGATIVE); URINE LEUKOCYTE ESTERASE Negative (NEGATIVE); URINE NITRATE Negative (NEGATIVE); URINE PROTEIN(semi-quant) Negative (NEGATIVE); URINE RBC 0-2 /hpf; URINE UROBILINOGEN Negative (NEGATIVE)
[2021-06-25 20:39] LABS: HEMOGLOBIN 9.5 g/dl (13.5-18.0); MEAN CORPUSCULAR HEMOGLOBIN 26 pg (27.0-31.0)
[2021-06-25 20:40] LABS: ALBUMIN 3.7 gm/dL (3.5-5.0); C-REACTIVE PROTEIN 0.8 mg/dL (0.0-0.9); CALCIUM 8.5 mg/dL (8.4-10.2); CREATININE, serum 1.36 (0.66-1.25); MAGNESIUM 2.2 mg/dL (1.6-2.3); POTASSIUM 4.6 mmol/L (3.4-5.0); TOTAL PROTEIN 5.6 gm/dL (6.4-8.2)
[2021-06-25] MEDS ORDERED: NITROSTAT0.4 MG/TAB SL (20:59)
[2021-06-25 21:07] LABS: ANISOCYTOSIS 1+; BAND 2 % (0-10); LYMPHOCYTE 38 % (20.0-51.0); NEUTROPHILS 52 % (42.0-75.2); PLATELET ESTIMATE DECREASED (NORMAL)
[2021-06-25 21:08] LABS: HYPOCHROMIA 3+; OVALOCYTES 1+; POIKILOCYTOSIS 2+; SCHISTOCYTES 1+; TEAR DROP CELLS 2+
[2021-06-25 22:07] VITALS: BP 94/62; PULSE 73
[2021-06-26 08:07] LABS: PATHOLOGY DIFF REVIEW OK
== END 2021-06-25 22:05 | disposition home or self-care (01) ==
LOC: COL.ER 19:27
PROVIDERS: Emergency Medicine
DX: R31.9 Hematuria, unspecified (principal); R33.9 Retention of urine, unspecified; R79.89 Other specified abnormal findings of blood chemistry; I50.9 Heart failure, unspecified; I25.2 Old myocardial infarction; I25.10 Atherosclerotic heart disease of native coronary artery without angina pectoris; E11.9 Type 2 diabetes mellitus without complications; Z79.02 Long term (current) use of antithrombotics/antiplatelets; Z79.82 Long term (current) use of aspirin
CPT/HCPCS: J7030